=== PATIENT | male | born 1995 | race Caucasian/White ===

== ENCOUNTER 2020-12-08 18:54 | Emergency (ER) | payer SELFPAY ==
[~2020-12-08] VITALS: Ht 183 cm; Wt 64.3 kg
[2020-12-08 19:00] VITALS: BP 134/86
--- NOTE | 2020-12-08 19:15 | ED General ---
General Chief Complaint: Abdominal/GI Problems Stated Complaint: BOWEL CONSTIPATION Source of Information: Patient History of Present Illness Date Seen by Provider: Dec 08, 2020 Time Seen by Provider: 18:56 Initial Comments 25-year-old male presenting with complaints of diffuse abdominal pain and cramping. He has had hard stools small amount of stool in the last 4 days. He did try taking some fiber Gummies which provided minimal improvement. He also was having some intermittent burning with urination. He had no fever, chills, vomiting. He has had some nausea. he states he does not eat regularly and usually only eats about 1 time a day due to travel back and forth from where he works. He has no history of GI issues. He just moved to [place] recently and does not have a primary care provider. Timing/Duration: 4-5 Days Severity: Moderate Modifying Factors: worse with Movement Associated Systoms: No Chest Pain, No Cough, No Diaphoresis, No Fever/Chills, No Headaches, No Loss of Appetite, No Malaise; Nausea/Vomiting (Nausea but no vomiting); No Seizure, No Shortness of Air, No Syncope, No Weakness Allergies and Home Medications Allergies Coded Allergies: Cephalosporins (Verified Allergy, Unknown, 12/08/20) Sulfa (Sulfonamide Antibiotics) (Verified Allergy, Unknown, 12/08/20) Patient Home Medication List Home Medication List Reviewed: Yes Review of Systems Review of Systems Constitutional: No chills, No fever EENTM: no symptoms reported Respiratory: no symptoms reported Cardiovascular: no symptoms reported Gastrointestinal: see HPI Genitourinary: dysuria (Intermittent burning with urination over the last 4 days) Musculoskeletal: no symptoms reported Skin: No rash Psychiatric/Neurological: Denies Headache Past Prmbiox-Iohckh-Cxzami Hx Past Medical History Surgery/Hospitalization HX: Spontaneous Pneumothorax Respiratory: Yes Asthma Cardiac: No Physical Exam Vital Signs Vital Signs - First Documented 12/08/20 19:00 Temp 36.6 Pulse 89 Resp 16 B/P (MAP) 134/86 (102) Pulse Ox 100 O2 Delivery Room Air Capillary Refill : Height, Weight, BMI Height: '" Weight: lbs. oz. kg; BMI Method: General Appearance: No Apparent Distress, Thin HEENT: PERRL/EOMI, Pharynx Normal Neck: Full Range of Motion, Normal Inspection, Non Tender, Supple Respiratory: Chest Non Tender, Lungs Clear, Normal Breath Sounds, No Accessory Muscle Use, No Respiratory Distress Cardiovascular: Regular Rate, Rhythm, Normal Peripheral Pulses Gastrointestinal: Normal Bowel Sounds, No Pulsatile Mass, Non Tender, Soft Rectal: Deferred Extremity: Normal Capillary Refill, Normal Inspection, No Pedal Edema Neurologic/Psychiatric: Alert, Oriented x3 Skin: Normal Color, Warm/Dry Progress/Results/Core Measures Suspected Sepsis SIRS Temperature: Pulse: Respiratory Rate: Blood Pressure / Mean: Results/Orders Lab Results Laboratory Tests Test 12/08/20 19:10 Range/Units Urine Color DARK YELLOW Urine Clarity CLEAR Urine pH 7.0 5-9 Urine Specific [place] 1.020 1.016-1.022 Urine Protein NEGATIVE NEGATIVE Urine Glucose (UA) NEGATIVE NEGATIVE Urine Ketones TRACE H NEGATIVE Urine Nitrite NEGATIVE NEGATIVE Urine Bilirubin NEGATIVE NEGATIVE Urine Urobilinogen 1.0 < = 1.0 MG/DL Urine Leukocyte Esterase NEGATIVE NEGATIVE Urine RBC (Auto) 2+ H NEGATIVE Urine RBC 10-25 H /HPF Urine WBC RARE /HPF Urine Squamous Epithelial Cells NONE /HPF Urine Crystals NONE /LPF Urine Bacteria NEGATIVE /HPF Urine Casts NONE /LPF Urine Mucus LARGE H /LPF Urine Culture Indicated NO My Orders Orders - KINJAL KANG MD Ua Culture If Indicated (12/08/20 19:09) Acute Abd Series (12/08/20 19:09) Vital Signs/I&O 12/08/20 19:00 Temp 36.6 Pulse 89 Resp 16 B/P (MAP) 134/86 (102) Pulse Ox 100 O2 Delivery Room Air Capillary Refill : Progress Note #1: Progress Note check UA and acute abdomen series of abdomen. Plan treatment with Miralax and follow up with [facility] to establish a PCP. Progress Note #2: Progress Note UA with mild elevation of specific gravity so he might be slightly dehydrated. No obstruction or blockage on Acute Abdomen Series. Will have him push fluids, take miralax, try eating a balanced diet. Check back with clinic and establish care. Diagnostic Imaging Diagonstic Imaging: Xray Plain Films/CT/US/NM/MRI: abdomen Comments NAME: MIRANDA DELONG MED REC#: [id number] PT STATUS: REG ER : 1995 PHYSICIAN: KINJAL KANG MD ADMIT DATE: 08/04/21/ER FS Draft Date of Exam:12/08/20 ACUTE ABD SERIES INDICATION: Abdominal pain. EXAMINATION: PA chest, supine and upright abdominal images were obtained. FINDINGS: Lungs are clear. Bowel gas pattern is normal. There is no pathologic mass or calcification. IMPRESSION: No acute abnormality in the abdomen. Dictated on workstation # [id number] Dict: 12/08/201921 Trans: 12/08/201928 [facility] [id number] Interpreted by: JOHNATHAN ARELLANO MD Electronically signed by: Departure Impression Primary Impression: Constipation Qualified Codes: K59.00 - Constipation, unspecified Additional Impression: Dehydration Disposition: HOME, SELF-CARE Condition: Stable Departure-Patient Inst. Decision time for Depature: 19:43 Referrals: NO,LOCAL PHYSICIAN (PCP) [place] Care Phys[place] [facility] [place] Instructions: Constipation, Adult ED, Dehydration, Adult ED Add. Discharge Instructions: Call [facility] at [phone] to get established with a primary care provider. Make sure you are drinking plenty of fluids and take Miralax 17 grams or 1 capful in 8 ounces of water or juice once a day to help loosen and soften your stools. Once you are going regularly you could decrease this to every other day or just 3-4 times a week to help keep your stools soft and regular. Try eating a more balance and healthy diet to keep your stools regular. All discharge instructions reviewed with patient and/or family. Voiced un derstanding. KINJAL KANG MD Dec 08, 2020 19:15
[2020-12-08 19:24] LABS: CLARITY,URINE CLEAR; COLOR,URINE DARK YELLOW
[2020-12-08 19:25] LABS: BACTERIA,URINE NEGATIVE /HPF; BILIRUBIN,URINE NEGATIVE (NEGATIVE); GLUCOSE, URINE (UA) NEGATIVE (NEGATIVE); KETONES,URINE TRACE (NEGATIVE); LEUKOCYTE ESTERASE ,URINE NEGATIVE (NEGATIVE); NITRITE,URINE NEGATIVE (NEGATIVE); PROTEIN,URINE NEGATIVE (NEGATIVE); WBC,URINE RARE /HPF
--- NOTE | 2020-12-08 19:30 | Diagnostic Imaging Report ---
INDICATION: Abdominal pain. EXAMINATION: PA chest, supine and upright abdominal images were obtained. FINDINGS: Lungs are clear. Bowel gas pattern is normal. There is no pathologic mass or calcification. IMPRESSION: No acute abnormality in the abdomen. Dictated by: Dictated on workstation # [id number]
== END 2020-12-08 19:47 | disposition home or self-care (01) ==
LOC: ER FS 18:56
DX: K59.00 Constipation, unspecified (principal); E86.0 Dehydration; J45.909 Unspecified asthma, uncomplicated
CPT/HCPCS: 74022; 81000

== ENCOUNTER 2020-12-14 09:57 | Emergency (ER) | payer SELFPAY ==
[~2020-12-14] VITALS: Ht 182 cm; Wt 65.9 kg
[2020-12-14] MEDS ORDERED: LIDOCAINE UROJET 2% GEL 10 ML PKG ONE (10:09)
[2020-12-14] MEDS ORDERED: LIDOCAINE UROJET 2% GEL 10 ML PKG TOP STA (10:11)
--- NOTE | 2020-12-14 10:19 | ED GU-Male ---
General Chief Complaint: - Urinary Stated Complaint: URINARY RETENTION Source: patient History of Present Illness Date Seen by Provider: Dec 14, 2020 Time Seen by Provider: 10:00 Initial Comments 25-year-old male presenting with complaint of inability to urinate for 24 hours. He reports going to [facility] and being seen in an emergency department ye sterday for continued concerns for constipation. He was seen here on December 08 for same complaint and advised to take Miralax. He reports he was also having a migraine headache and was given Toradol with Benadryl for the headache. He was given several medicines to help with his constipation. He reports that he did finally have a good bowel movement but has not been able to urinate for 24 hours. He was having with pain pressure like he needed to urinate but has not been able to pass any urine. Timing/Duration: getting worse Location: suprapubic Radiation: suprapubic Prior Genitourinary Problems: none Associated Symptoms: No diaphoresis, No dysuria, No fever/chills, No loss of bladder control, No lower back pain, No lumps, No mass, No nausea/vomiting, No nocturia, No polyuria, No swelling, No syncope, No urinary frequency Allergies and Home Medications Allergies Coded Allergies: Cephalosporins (Verified Allergy, Unknown, 12/08/20) Sulfa (Sulfonamide Antibiotics) (Verified Allergy, Unknown, 12/08/20) Patient Home Medication List Home Medication List Reviewed: Yes Review of Systems Review of Systems Constitutional: No chills, No fever EENTM: no symptoms reported Respiratory: no symptoms reported Cardiovascular: no symptoms reported Gastrointestinal: constipation Genitourinary: see HPI Musculoskeletal: no symptoms reported Skin: no symptoms reported Psychiatric/Neurological: Anxiety Past Cghpept-Hmcabk-Qvxmbt Hx Patient Social History Tobacco Use?: Yes Past Medical History Surgery/Hospitalization HX: Spontaneous Pneumothorax Respiratory: Yes Asthma Cardiac: No Physical Exam Vital Signs Vital Signs - First Documented 12/14/20 10:20 Temp 36.5 Pulse 79 Resp 16 B/P (MAP) 123/79 (94) Pulse Ox 100 O2 Delivery Room Air Capillary Refill : Height, Weight, BMI Height: '" Weight: lbs. oz. kg; 19.00 BMI Method: General Appearance: thin, other (anxious) Cardiovascular: normal peripheral pulses, regular rate, rhythm Respiratory: chest non-tender, lungs clear, normal breath sounds Gastrointestinal: normal bowel sounds, soft, no pulsatile mass, tenderness (suprapubic) Rectal: deferred Extremities: normal range of motion, non-tender, normal capillary refill Neurologic/Psychiatric: alert, oriented x 3 Skin: normal color, warm/dry Progress/Results/Core Measures Suspected Sepsis SIRS Temperature: Pulse: Respiratory Rate: Blood Pressure / Mean: Results/Orders Lab Results Laboratory Tests Test 12/14/20 10:10 Range/Units Urine Color YELLOW Urine Clarity CLEAR Urine pH 7.0 5-9 Urine Specific [place] 1.015 L 1.016-1.022 Urine Protein NEGATIVE NEGATIVE Urine Glucose (UA) NEGATIVE NEGATIVE Urine Ketones TRACE H NEGATIVE Urine Nitrite NEGATIVE NEGATIVE Urine Bilirubin NEGATIVE NEGATIVE Urine Urobilinogen 0.2 < = 1.0 MG/DL Urine Leukocyte Esterase NEGATIVE NEGATIVE Urine RBC (Auto) TRACE NEGATIVE Urine RBC 10-25 H /HPF Urine WBC RARE /HPF Urine Squamous Epithelial Cells NONE /HPF Urine Crystals PRESENT H /LPF Urine Amorphous Sediment FEW PRANAY URATES H /LPF Urine Bacteria NEGATIVE /HPF Urine Casts NONE /LPF Urine Mucus MODERATE H /LPF Urine Culture Indicated NO My Orders Orders - KINJAL KANG MD Bladder Scan (12/14/20 10:03) Lidocaine 2% (Urojet) (Xylocaine Urojet) (12/14/20 10:11) Lidocaine 2% (Urojet) (Xylocaine Urojet) (12/14/20 10:09) Martínez Cath (12/14/20 10:11) Ua Culture If Indicated (12/14/20 10:11) Vital Signs/I&O 12/14/20 10:20 Temp 36.5 Pulse 79 Resp 16 B/P (MAP) 123/79 (94) Pulse Ox 100 O2 Delivery Room Air Capillary Refill : Progress Note #1: Progress Note Bladder scan showed over 1000 mL of urine. Advised patient that he would need a Martínez catheter to stay on for several days to allow the bladder to recover from the shock of being overstretched. Hopefully the catheter can be removed either Sunday or next Sunday or Sunday. Will also check a UA to ensure that he does not need antibiotics. Will give number and information for Dr. Reece for Urology follow up as well. Progress Note #2: Progress Note UA does not show infection so will defer antibiotic. Encourage hydration and given information about care of catheter and follow up with clinic and urology for catheter. Departure Impression Primary Impression: Acute urinary retention Disposition: 01 HOME, SELF-CARE Condition: Stable Departure-Patient Inst. Decision time for Depature: 10:57 Referrals: NO,LOCAL PHYSICIAN (PCP) Primary Care Physician SAURABH REECE [place] [facility] [place] Instructions: Urinary Retention (DC), How to Care for Your Martínez Catheter, Male Add. Discharge Instructions: Stay well hydrated Follow up with clinic to see if the catheter can be removed at end of this week or if will have to stay in until beginning of next week. If [facility] clinic can not have you see a provider this week about the catheter you may also call Dr. Reece from [place]. He is a Urologist and specializes in the bladder and urinary system. All discharge instructions reviewed with patient and/or family. Voiced understanding. KINJAL KANG MD Dec 14, 2020 10:18
[2020-12-14 10:20] VITALS: BP 123/79
[2020-12-14 10:50] LABS: COLOR,URINE YELLOW
[2020-12-14 10:51] LABS: BACTERIA,URINE NEGATIVE /HPF; BILIRUBIN,URINE NEGATIVE (NEGATIVE); CLARITY,URINE CLEAR; GLUCOSE, URINE (UA) NEGATIVE (NEGATIVE); KETONES,URINE TRACE (NEGATIVE); LEUKOCYTE ESTERASE ,URINE NEGATIVE (NEGATIVE); NITRITE,URINE NEGATIVE (NEGATIVE); PROTEIN,URINE NEGATIVE (NEGATIVE); WBC,URINE RARE /HPF
[2020-12-14 10:52] LABS: AMORPHOUS SEDIMENT,UR FEW AMOR URATES /LPF
== END 2020-12-14 11:05 | disposition home or self-care (01) ==
LOC: EDUNIT# 09:57 → ER FS 09:59
DX: R33.9 Retention of urine, unspecified (principal); J45.909 Unspecified asthma, uncomplicated
CPT/HCPCS: 51702; 81000

== ENCOUNTER 2021-01-10 10:46 | Emergency (ER) | payer SELFPAY ==
[~2021-01-10] VITALS: Ht 182.9 cm; Wt 61.2 kg
[2021-01-10 10:50] VITALS: BP 113/68
--- NOTE | 2021-01-10 11:36 | ED GU-Male ---
General Chief Complaint: - Reproductive Stated Complaint: URINARY PAIN Source: patient Exam Limitations: no limitations (CHRIS GODFREY STUDENT) History of Present Illness Date Seen by Provider: Jan 10, 2021 Time Seen by Provider: 11:30 Initial Comments Fredy is a 25 yo M who is presenting for urinary pain and burning. Pt has Martínez catheter that was placed 12/14/20. Pt stated he had mild burning on 01/08, burning increased in intensity yesterday morning. Pt was at [facility] last night and was told he has a uti, his antibiotic was switched to ciprofloxacin from macrobid. Pain and burning localized to the penis, no scrotal or suprapubic pain. Denies any pus, blood, or change in urine color. Timing/Duration: yesterday, getting worse Severity/Quality: moderate, burning, stabbing Location: urethral Radiation: none Activities at Onset: other (standing up ) Sexual [place] History: less than 2 months ago, single partner Modifying Factors: Improves With Analgesics, Improves With Defecating; Worsens With Movement, Worsens With Urinating Associated Symptoms: No abdominal pain, No diaphoresis, No fever/chills, No lower back pain, No nausea/vomiting, No swelling (CHRIS GODFREY STUDENT) Allergies and Home Medications Allergies Coded Allergies: Cephalosporins (Verified Allergy, Unknown, 12/08/20) Penicillins (Verified Allergy, Unknown, 01/10/21) per patient Sulfa (Sulfonamide Antibiotics) (Verified Allergy, Unknown, 12/08/20) Patient Home Medication List Home Medication List Reviewed: Yes (VICKIE CASTRO MD) Phenazopyridine HCl (Pyridium) 200 Mg Tablet, 1 TAB PO TID PRN for PAIN-MODERATE (5-7) Prescribed by: VICKIE MOREIRA on 01/10/21 1142 Review of Systems Review of Systems Constitutional: No chills, No diaphoresis, No dizziness, No fever Respiratory: No cough, No short of breath Cardiovascular: No chest pain, No edema, No palpitations Gastrointestinal: No abdominal pain, No constipation, No diarrhea, No nausea, No vomiting Genitourinary: burning; denies hematuria; pain Musculoskeletal: No back pain (CHRIS GODFREY STUDENT) Past Sszrcte-Izdmdh-Gtewkl Hx Patient Social History Tobacco Use?: No Smoking Status: Never a Smoker Substance use?: No (CHRIS GODFREY) Past Medical History Surgery/Hospitalization HX: Spontaneous Pneumothorax, carpal tunnel Surgeries: Yes Respiratory: Yes Asthma Cardiac: No Neurological: Yes Headaches /Migraines Sexually Transmitted Disease: No Genitourinary: Yes Bladder Infection Gastrointestinal: Yes Chronic Constipation Psychosocial: No (CHRIS GODFREY) Family Medical History No Pertinent Family Hx (CHRIS GODFREY) Physical Exam Vital Signs Vital Signs - First Documented 01/10/21 10:50 Temp 36.6 Pulse 111 Resp 16 B/P (MAP) 113/68 (83) Pulse Ox 100 O2 Delivery Room Air (VICKIE CASTRO MD) Vital Signs Capillary Refill : (CHRIS GODFREY) Height, Weight, BMI Height: '" Weight: lbs. oz. kg; 19.00 BMI Method: General Appearance: mild distress, thin Neurologic/Psychiatric: normal mood/affect, oriented x 3 (CHRIS GODFREY) Progress/Results/Core Measures Suspected Sepsis SIRS Temperature: Pulse: Respiratory Rate: Blood Pressure / Mean: (CHRIS GODFREY) Results/Orders My Orders (VICKIE CASTRO MD) Vital Signs/I&O 01/10/21 10:50 Temp 36.6 Pulse 111 Resp 16 B/P (MAP) 113/68 (83) Pulse Ox 100 O2 Delivery Room Air (VICKIE CASTRO MD) Vital Signs/I&O Capillary Refill : (CHRIS GODFREY) Progress Note : Progress Note Urinalysis and urine cultures were not collected due to both being done at [facility] the previous night. Still waiting for urine culture results. Pt was offered gonorrhea and chlamydia testing today, this testing was declined by pt. Discussed keeping the catheter in and using pyridium to help with the urethral pain. Also talked about taking the catheter out and the potential benefits. Pt is uncomfortable with doing intermittent straight catheterizations by himself. Talked about pt returning for catheter placement if obstruction reoccu rs. Pt is following up with his urologist, located in [place], [place], this upcoming Sunday. (CHRIS GODFREY) Progress Note : Progress Note After reviewing options patient decided he wanted the catheter removed. He is aware that this may result in a repeat obstruction requiring return to the ER for replacement. He is to start the Cipro as prescribed in [place] last night as well as Pyridium prescribed from the ER [facility]. Patient had some concern after the catheter was removed as he had passed some urine followed by sediment and about a teaspoon of bright red blood. I encouraged him to drink a couple glasses of water prior to leaving the ER to start urine production. Patient declined to drink stating he did not want to leak or have to urinate on the way home. See discharge instructions. (VICKIE CASTRO MD) Departure Impression Primary Impression: Penile pain Additional Impressions: Urinary tract infection Qualified Codes: N39.0 - Urinary tract infection, site not specified Urinary obstruction Disposition: 01 HOME, SELF-CARE Condition: Improved Departure-Patient Inst. Decision time for Depature: 11:38 (VICKIE CASTRO MD) Referrals: FABIAN SPRINGER MD (PCP/Family) Primary Care Physician Patient Instructions: Urinary Obstruction, Urinary Tract Infection, Adult (DC) Add. Discharge Instructions: Drink plenty of clear liquids and urinate often to help flush out your bladder. If you have residual pain, you may use Pyridium as prescribed. Please be aware this medication may turn your urine orange or reddish color. If you develop urinary obstruction again, please return to the ER to have your catheter replaced. Follow-up with your urologist as planned. Please follow-up on your urine culture results to help determine if the antibiotic you are taking is appropriate for the urinary tract infection you have. Use the Cipro as prescribed. Call with questions or concerns. Return to the ER if you have any other worsening symptoms or concerns that require immediate attention. All discharge instructions reviewed with patient and/or family. Voiced understanding. Scripts Phenazopyridine HCl (Pyridium) 200 Mg Tablet 1 TAB PO TID PRN for PAIN-MODERATE (5-7), #10 TAB Prov: VICKIE CASTRO MD 01/10/21 Medical Student Attestation and Attending Note: I have personally interviewed and examined this patient along with Chris Godfrey, MS 4. I have reviewed student documentation including history, physical, and assessments. I agree with the documentation except where otherwise noted. Exam: General: Alert, oriented, no acute distress, well developed HEENT: Normocephalic and atraumatic Abdomen: Soft, nontender, nondistended, normal bowel sounds Genital: Normal-appearing penis with tenderness to palpation along the shaft. No erythema. No drainage from the meatus. Scrotum and testicles normal in appearance and nontender. Catheter appears normal. Neuropsych: Alert, oriented, no focal deficits Skin: Warm and dry without rashes (VICKIE CASTRO MD) Copy Copies To 1: FABIAN SPRINGER MD, KATHRYN MED STUDENT Jan 10, 2021 11:36 VICKIE CASTRO MD Jan 10, 2021 11:42
[2021-01-10] MEDS ORDERED: PHEN-640 PO (11:42)
== END 2021-01-10 11:46 | disposition home or self-care (01) ==
LOC: EDUNIT# 10:46 → ER FS 10:48
DX: N48.89 Other specified disorders of penis (principal); N39.0 Urinary tract infection, site not specified; N13.9 Obstructive and reflux uropathy, unspecified; J45.909 Unspecified asthma, uncomplicated
CPT/HCPCS: 99282

== ENCOUNTER 2021-05-10 07:40 | Observation (INO) | payer SELFPAY ==
[~2021-05-10] VITALS: Ht 182.9 cm; Wt 66.1 kg
[~2021-05-10 07:40] MED LIST: PHEN-640 PO
--- NOTE | 2021-05-10 08:03 | ED Chest Pain ---
General Chief Complaint: Chest Pain Stated Complaint: CHEST PAIN Source: patient Exam Limitations: no limitations History of Present Illness Date Seen by Provider: May 10, 2021 Time Seen by Provider: 07:48 Initial Comments 25-year-old male with past medical history of spontaneous pneumothorax coming in due to chest pain. Is been ongoing for 3 weeks and has been on the right side of his chest, and sharp. He presented to [facility] in [place] not l fred ago and they diagnosed him with pleurisy and prescribed him with naproxen. He last took this 8 hours ago. He says this does help some with the pain. He says the pain now is on the left side of his chest for the past 24 hours, and is constant and unrelenting. It is worse when he lays back and little bit better when he sits up. He is otherwise denying any other acute complaints including fever, shortness of breath, abdominal pain, nausea, vomiting, diarrhea, weakness, numbness, cough, rash, or any other concerns. Allergies and Home Medications Allergies Coded Allergies: Cephalosporins (Verified Allergy, Unknown, 12/08/20) Penicillins (Verified Allergy, Unknown, 01/10/21) per patient Sulfa (Sulfonamide Antibiotics) (Verified Allergy, Unknown, 12/08/20) Patient Home Medication List Home Medication List Reviewed: Yes Phenazopyridine HCl (Pyridium) 200 Mg Tablet, 1 TAB PO TID PRN for PAIN-MODERATE (5-7) Prescribed by: VICKIE MOREIRA on 01/10/21 1142 Review of Systems Review of Systems Constitutional: No chills, No fever EENTM: No Blurred Vision Respiratory: Denies Cough, Denies Shortness of Air Cardiovascular: Chest Pain Gastrointestinal: Denies Abdominal Pain, Denies Diarrhea, Denies Nausea, Denies Vomiting Genitourinary: No Symptoms Reported Musculoskeletal: No joint pain Skin: No rash Psychiatric/Neurological: No Symptoms Reported Endocrine: No Symptoms Reported Hematologic/Lymphatic: No Symptoms Reported All Other Systems Reviewed Negative Unless Noted: Yes Past Zbjsfql-[id number]-Fxhijj Hx Patient Social History Tobacco Use?: Yes Tobacco type used: Cigarettes Use of E-Cig and/or Vaping dev: No Substance use?: Yes Substance type: Marijuana Substance frequency: Once in a while Alcohol Use?: Yes Alcohol Frequency: Once in a while Pt feels they are or have been: No Immunizations Up To Date Influenza Vaccine Up-to-Date: No; Not Current First/Initial COVID19 Vaccinat: Not currently vaccinated Past Medical History Surgery/Hospitalization HX: Spontaneous Pneumothorax, carpal tunnel; urinary retention Surgeries: Yes Respiratory: Yes Asthma Cardiac: No Neurological: Yes Headaches /Migraines Sexually Transmitted Disease: No Genitourinary: Yes Bladder Infection Gastrointestinal: Yes Chronic Constipation Psychosocial: No Family Medical History No Pertinent Family Hx Physical Exam Vital Signs Vital Signs - First Documented 05/10/21 05/10/21 07:42 08:35 Temp 37.0 Pulse 97 Resp 20 B/P (MAP) 139/84 (102) Pulse Ox 94 O2 Delivery Room Air O2 Flow Rate 2.00 Capillary Refill : Height, Weight, BMI Height: '" Weight: lbs. oz. kg; 18.00 BMI Method: General Appearance: No Apparent Distress, WD/WN HEENT: PERRL/EOMI, Normal ENT Inspection, Pharynx Normal Neck: Full Range of Motion, Normal Inspection, Non Tender, Supple Respiratory: Chest Non Tender, No Accessory Muscle Use, No Respiratory Distress, Other (decreased breath sounds on the left) Cardiovascular: Regular Rate, Rhythm, No Edema, Normal Peripheral Pulses; No Friction Rub Gastrointestinal: Normal Bowel Sounds, Non Tender, Soft; No Distended, No Guarding Extremity: Normal Capillary Refill, Normal Inspection, Normal Range of Motion, Non Tender, No Calf Tenderness Neurologic/Psychiatric: Alert, No Motor/Sensory Deficits, Normal Mood/Affect Skin: Normal Color, Warm/Dry Lymphatic: No Adenopathy Procedures/Interventions Chest Tube : Chest Tube Position: Left Chest Tube Location: Anterior Chest Size of Slovak Tube (cm): 13 Chest Tube Procedure: betadine prep Anesthesia: 1% Lidocaine w/ Epi Volume Anesthetic (ccs): 7 Szymanski of Air Crisp: Yes Number of Attempts: 1 Post Procedure CXR?: Yes Progress Thoravent used without difficulty, placed to suction until constant air leak stopped, confirmed placement with CXR and then CT chest Patient Education: Explained Benefits, Explained Risks, Pt. Ack. Understanding Agreement on procedure with pt: Yes Breath Sounds per Auscultation: Clear (decreased on left due to pneumothorax) Heart Sounds per Auscultation: Regular Airway Exam: Mouth opens >2 fingers, Neck Full Range of Motion, Visulation of Uvula Sedation Adminstration Time: 08:40 Total Time spent in CS 10 minutes Patient tolerated the procedural sedation without difficulty or side effects Re-examination Time: 08:51 Re-examination 0855 Care turned over to: Nurse Progress/Results/Core Measures Results/Orders Lab Results Laboratory Tests Test 05/10/21 08:10 Range/Units White Blood Count 11.5 H 4.3-11.0 10^3/uL Red Blood Count 5.41 4.30-5.52 10^6/uL Hemoglobin 17.3 13.3-17.7 g/dL Hematocrit 49 40-54 % Mean Corpuscular Volume 91 80-99 fL Mean Corpuscular Hemoglobin 32 25-34 pg Mean Corpuscular Hemoglobin Concent 35 32-36 g/dL Red Cell Distribution Width 12.9 10.0-14.5 % Platelet Count 275 130-400 10^3/uL Mean Platelet Volume 8.9 L 9.0-12.2 fL Immature Granulocyte % (Auto) 0 % Neutrophils (%) (Auto) 56 42-75 % Lymphocytes (%) (Auto) 33 12-44 % Monocytes (%) (Auto) 7 0-12 % Eosinophils (%) (Auto) 3 0-10 % Basophils (%) (Auto) 0 0-10 % Neutrophils # (Auto) 6.5 1.8-7.8 X 10^3 Lymphocytes # (Auto) 3.7 1.0-4.0 X 10^3 Monocytes # (Auto) 0.8 0.0-1.0 X 10^3 Eosinophils # (Auto) 0.3 0.0-0.3 10^3/uL Basophils # (Auto) 0.0 0.0-0.1 10^3/uL Immature Granulocyte # (Auto) 0.0 0.0-0.1 10^3/uL Sodium Level 139 135-145 MMOL/L Potassium Level 4.0 3.6-5.0 MMOL/L Chloride Level 105 98-107 MMOL/L Carbon Dioxide Level 23 21-32 MMOL/L Anion Gap 11 5-14 MMOL/L Blood Urea Nitrogen 14 7-18 MG/DL Creatinine 0.84 0.60-1.30 MG/DL Estimat Glomerular Filtration Rate 111 BUN/Creatinine Ratio 17 Glucose Level 139 H 70-105 MG/DL Calcium Level 9.4 8.5-10.1 MG/DL My Orders Orders - KRUMSICK,SHAWNA K MD Chest Pa/Lat (2 View) (05/10/21 07:49) Ekg Tracing (05/10/21 07:49) Basic Metabolic Panel (05/10/21 08:07) Cbc With Automated Diff (05/10/21 08:07) Lidocaine/Epi 2% 1:100,000 (Xylocaine/Ep (05/10/21 08:15) Ed Iv/Invasive Line Start (05/10/21 08:21) Lactated Ringers (Lr 1000 Ml Iv Solution (05/10/21 08:30) Ketamine Injection (Ketalar Injection) (05/10/21 08:30) Chest 1 View Ap/Pa Only (05/10/21 ) Ct Chest Wo (05/10/21 09:10) Fentanyl Inj (Sublimaze Injection) (05/10/21 09:15) Fentanyl Inj (Sublimaze Injection) (05/10/21 09:16) Ketorolac Injection (Toradol Injection) (05/10/21 09:45) Medications Given in ED Current Medications Medications Dose Ordered Sig/Asif Route Start Time Stop Time Status Last Admin Dose Admin Fentanyl Citrate 50 mcg ONCE ONCE IVP 05/10/21 09:15 05/10/21 09:16 DC 05/10/21 09:17 50 MCG Ketamine HCl 25 mg ONCE ONCE IV 05/10/21 08:30 05/10/21 08:31 DC 05/10/21 08:29 25 MG Lactated Ringer's 1,000 ml @ 0 mls/hr Q0M ONCE IV 05/10/21 08:30 05/10/21 08:31 DC 05/10/21 08:32 0 MLS/HR Lidocaine/ Epinephrine 20 ml ONCE ONCE INJ 05/10/21 08:15 05/10/21 08:16 DC 05/10/21 08:20 20 ML Vital Signs/I&O 05/10/21 05/10/21 05/10/21 05/10/21 07:42 08:35 08:39 08:40 Temp 37.0 37.0 37.0 Pulse 97 99 94 Resp 20 20 16 B/P (MAP) 139/84 (102) 133/90 140/75 Pulse Ox 94 95 99 O2 Delivery Room Air Nasal Cannula Nasal Cannula Nasal Cannula O2 Flow Rate 2.00 2.00 2.00 2.00 05/10/21 05/10/21 05/10/21 05/10/21 08:45 08:50 08:55 09:00 Temp 37.0 37.0 36.7 36.7 Pulse 118 104 106 98 Resp 17 B/P (MAP) 173/96 146/80 138/69 138/76 Pulse Ox 97 98 99 99 O2 Delivery Nasal Cannula Nasal Cannula Nasal Cannula Nasal Cannula O2 Flow Rate 2.00 2.00 2.00 2.00 Progress Progress Note : Progress Note 25-year-old male with above history coming in due to chest pain. ABCs were intact and vitals were stable on presentation. Physical exam with decreased breath sounds on the left. Chest x-ray with complete collapse of the left lung with pneumothorax. I personally discussed the case with the radiologist on-call confirming this, and he is concerned for some early signs of tension pneumothorax. Because of this, I placed a Thora vent tube with good air return. Placed him on suction until the constant air leak went away. Contacted Dr. Thompson in [place] discussed the patient's case who recommended a CT of his chest to evaluate for any blebs or other pathology that would cause his second pneumothorax. Given that the lung was completely down, I would like him to be observed at least overnight to be sure he does not develop any type of pneumonitis from the reexpansion. The patient will be transferred to [place] for further evaluation and william gement. Initial ECG Impression Date: May 10, 2021 Initial ECG Impression Time: 07:43 Initial ECG Rate: 98 Initial ECG Rhythm: Normal Sinus Comment Narrow QRS, normal axis, no significant ST changes Diagnostic Imaging Diagonstic Imaging: CT (chest) Comments [facility], [place] NAME: MIRANDA DELONG [facility] REC#: [id number] PT STATUS: REG ER : 1995 PHYSICIAN: SHAWNA TORRES MD ADMIT DATE: 05/10/21/ER FS Draft Date of Exam:05/10/21 CT CHEST WO PROCEDURE: CT chest without contrast. TECHNIQUE: Multiple contiguous axial images were obtained through the chest without the use of intravenous contrast. Auto Exposure Controls were utilized during the CT exam to meet ALARA standards for radiation dose reduction. INDICATION: Pneumothorax chest tube There are no prior CT chest examinations available comparison. The plain film examination of the chest performed prior study did note a 70-80% pneumothorax on the left. In the interval since the prior study, a small caliber chest tube has been inserted on the left. The tip of the tube is directed cephalad and overlies the left upper lung. The pneumothorax seen previously has diminished considerably. There is still a small amount of free air along the anterior aspect of the right lung base. Furthermore in the interval since the prior study, bibasilar atelectasis/infiltrate has developed. There could be an element of pneumonia present. The right lung is clear. The heart size is within normal limits. There are no coronary artery calcifications noted. The aorta is not abnormally dilated. There is no obvious mediastinal or hilar adenopathy. The thyroid gland was not well visualized. The sections through the upper abdomen failed to show any sign of an acute abnormality. The bone windows are unremarkable for fracture or for destructive lesion. IMPRESSION: 1. The appearance of the chest has improved since the prior exam following insertion of a left-sided chest tube. The large pneumothorax on the left seen previously has nearly completely resolved. Only a small amount of free air still present in the left lung base. 2. However, left lower lobe atelectasis/infiltrate has developed. Clinical follow-up is recommended. 3. There is no acute abnormality identified otherwise. Dictated on workstation # [id number] Dict: 05/10/21 0939 Trans: 05/10/21 0947 [id number] Interpreted by: TIGIST MELTON MD Electronically signed by: Departure Impression Primary Impression: Spontaneous pneumothorax Disposition: 30 STILL A PATIENT Condition: Stable Admissions Decision to Admit Reason: Admit from ER (General) Decision to Admit/Date: May 10, 2021 Time/Decision to Admit Time: 09:15 Transfer Method of Transfer: EMS Departure-Patient Inst. Referrals: FABIAN SPRINGER MD (PCP/Family) Primary Care Physician SHAWNA TORRES MD May 10, 2021 08:03
[2021-05-10] MEDS ORDERED: LIDOCAINE/EPI 2% 1:100,00 (XYLOCAINE) 20 ML VIAL INJ ONE (08:15)
--- NOTE | 2021-05-10 08:16 | Diagnostic Imaging Report ---
PA and lateral chest at 803h. INDICATION: Chest pain There are no prior studies available for comparison. There is a 70-80% pneumothorax on the left. Most of the left lung is collapsed about the left hilum. There is also slight shift of midline to the right and there may be an element of tension present as well. The right lung is clear. The heart size is within normal limits. The mediastinum is not widened. The osseous structures are intact. IMPRESSION: 1. There is a 70-80% pneumothorax on the left. There may be an element of tension developing as well. 2. These results were discussed with Dr. Brendan Funez at the time of this dictation. CRITICAL FINDING: Dictated by: Dictated on workstation # [id number]
[2021-05-10 08:25] LABS: HEMATOCRIT 49 % (40-54); HEMOGLOBIN 17.3 g/dL (13.3-17.7); LYMPHOCYTES % (AUTO) 33 % (12-44); MEAN CORPUSCULAR HEMOGLOBIN 32 pg (25-34); MEAN CORPUSCULAR HGB CONC 35 g/dL (32-36); MEAN CORPUSCULAR VOLUME 91 fL (80-99); MEAN PLATELET VOLUME 8.9 fL (9.0-12.2); MONOCYTES % (AUTO) 7 % (0-12); NEUTROPHILS % (AUTO) 56 % (42-75); PLATELET COUNT 275 10^3/uL (130-400); WHITE BLOOD COUNT 11.5 10^3/uL (4.3-11.0)
[2021-05-10 08:26] LABS: BASOPHILS % (AUTO) 0 % (0-10); EOSINOPHILS # (AUTO) 0.3 10^3/uL (0.0-0.3); EOSINOPHILS % (AUTO) 3 % (0-10); LYMPHOCYTES # (AUTO) 3.7 X 10^3 (1.0-4.0); MONOCYTES # (AUTO) 0.8 X 10^3 (0.0-1.0); NEUTROPHILS # (AUTO) 6.5 X 10^3 (1.8-7.8)
[2021-05-10] MEDS ORDERED: LACTATED RINGERS 1,000 ML IV ONE (08:30)
[2021-05-10] MEDS ORDERED: KETAMINE HCL 100 MG/ML 5 ML VIAL IV ONE (08:30)
[2021-05-10 08:52] LABS: CALCIUM 9.4 MG/DL (8.5-10.1); CREATININE SERUM 0.84 MG/DL (0.60-1.30)
[2021-05-10] MEDS ORDERED: fentaNYL INJ 100 MCG/2 ML AMP IVP ONE (09:15)
[2021-05-10] MEDS ORDERED: fentaNYL INJ 100 MCG/2 ML AMP ONE (09:16)
--- NOTE | 2021-05-10 09:19 | Diagnostic Imaging Report ---
INDICATION: Pneumothorax. TECHNIQUE/COMPARISON: A frontal chest was obtained at 8:58 AM and compared with 8:03 AM the same day. FINDINGS: There is a new small caliber chest tube on the left side overlying the apical region. The large left pneumothorax appears identical to the prior study. There is no significant pleural fluid. The right lung is clear. IMPRESSION: A large left pneumothorax is present despite the addition of a new small caliber left-sided chest tube. Followup is recommended. Dictated by: Dictated on workstation # [id number]
[2021-05-10] MEDS ORDERED: KETOROLAC 30 MG/ML VIAL IVP ONE (09:45)
--- NOTE | 2021-05-10 09:49 | Diagnostic Imaging Report ---
PROCEDURE: CT chest without contrast. TECHNIQUE: Multiple contiguous axial images were obtained through the chest without the use of intravenous contrast. Auto Exposure Controls were utilized during the CT exam to meet ALARA standards for radiation dose reduction. INDICATION: Pneumothorax chest tube There are no prior CT chest examinations available comparison. The plain film examination of the chest performed prior study did note a 70-80% pneumothorax on the left. In the interval since the prior study, a small caliber chest tube has been inserted on the left. The tip of the tube is directed cephalad and overlies the left upper lung. The pneumothorax seen previously has diminished considerably. There is still a small amount of free air along the anterior aspect of the right lung base. Furthermore in the interval since the prior study, bibasilar atelectasis/infiltrate has developed. There could be an element of pneumonia present. The right lung is clear. The heart size is within normal limits. There are no coronary artery calcifications noted. The aorta is not abnormally dilated. There is no obvious mediastinal or hilar adenopathy. The thyroid gland was not well visualized. The sections through the upper abdomen failed to show any sign of an acute abnormality. The bone windows are unremarkable for fracture or for destructive lesion. IMPRESSION: 1. The appearance of the chest has improved since the prior exam following insertion of a left-sided chest tube. The large pneumothorax on the left seen previously has nearly completely resolved. Only a small amount of free air still present in the left lung base. 2. However, left lower lobe atelectasis/infiltrate has developed. Clinical follow-up is recommended. 3. There is no acute abnormality identified otherwise. Dictated by: Dictated on workstation # [id number]
[2021-05-10 12:08] VITALS: BP 129/83
--- NOTE | 2021-05-10 13:13 | History & Physical-Surgical ---
BJORNDONATO 05/10/21 1313: History of Present Illness History of Present Illness Reason for visit/HPI Fredy Delong is a 25 yo male with a PMH of R-sided spontaneous pneumothorax who presents for evaluation and management of chest pain that has persisted for 3 weeks. Patient states that over the past 3 weeks, he was diagnosed with pleurisy at [facility], however, the Naproxen he was prescribed has minimally helped with pain. In the past 24 hours, the chest pain migrated to the L side, and radiates up to his left lateral neck, which he described as sharp in character. Upon arrival to [place] ED, it was determined he had a left large pneumothorax, for which a chest tube was placed with minimal improvement. A thoravent was ultimately put in place, which largely resolved the pneumothorax, however there is still some free air present in the lower lobe of L lung. Upon my visit, Fredy was sitting up in bed, with thoravent in place on left chest; he appears frustrated due to the fact that he is unsure of how long he will be here and that he is NPO. Chest CT indicates that there is L basilar atelectasis/infiltrate present, which may be suggestive of a developing penumonia. CXR indicated an element of tension PNX. EKG demonstrated biatrial enlargement and mild T wave abnormalities. Fredy states that the chest pain is always worse in the morning or after he lays down for an extended period of time, and is relieved by sitting or standing. He reports that movement of his neck and deep breathing worsens the pain to an 8/10, so he is presently taking shallow breaths, and trying not to move his neck. Date of Admission May 10, 2021 at 12:03 Date Seen by a Provider: May 10, 2021 Time Seen by a Provider: 13:13 I consulted on this patient on 05/10/21 12:58 Attending Physician Hanh Clay DO Admitting Physician Hayden Willis MD Consult Allergies and Home Medications Allergies Coded Allergies: Cephalosporins (Verified Allergy, Unknown, 12/08/20) Penicillins (Verified Allergy, Unknown, 01/10/21) per patient Sulfa (Sulfonamide Antibiotics) (Verified Allergy, Unknown, 12/08/20) Patient Home Medication List Phenazopyridine HCl (Pyridium) 200 Mg Tablet, 1 TAB PO TID PRN for PAIN-MODERATE (5-7) Prescribed by: VICKIE MOREIRA on 01/10/21 1142 Past Xkxbchm-Fwryko-Zvrutc Hx Patient Social History Marrital Status: cohabiting Employed/Student: employed Tobacco Use?: Yes Tobacco type used: Cigarettes Smoking Status: Current Everyday Smoker Smokeless Tobacco Frequency: Never a User Use of E-Cig and/or Vaping dev: No Substance use?: No Substance type: Marijuana Substance frequency: Once in a while Alcohol Use?: No Alcohol Frequency: Once in a while Pt feels they are or have been: No Immunizations Up To Date First/Initial COVID19 Vaccinat: Not currently vaccinated Second COVID19 Vaccination Ruben: Not currently vaccinated Tetanus Booster (TDap): Unknown Hepatitis A: Yes Hepatitis B: Yes Current Status Advance Directives: No Communicates: Verbally Primary Language: Somali Preferred Spoken Language: Somali Is interpretation needed?: No Implanted or Applied Medical D: None Past Medical History Asthma Headaches /Migraines Sexually Transmitted Disease: No Bladder Infection Chronic Constipation Family Medical History No Pertinent Family Hx Review of Systems Constitutional: No chills, No fever; malaise EENTM: No blurred vision, No double vision Respiratory: short of breath Cardiovascular: chest pain Gastrointestinal: No abdominal pain, No nausea, No vomiting Musculoskeletal: No back pain, No joint pain Skin: No change in color, No change in hair/nails Psychiatric/Neurological: Denies Anxiety, Denies Depressed Physical Exam Vital Signs Vital Signs - First Documented 05/10/21 05/10/21 07:42 08:35 Temp 37.0 Pulse 97 Resp 20 B/P (MAP) 139/84 (102) Pulse Ox 94 O2 Delivery Room Air O2 Flow Rate 2.00 Capillary Refill : Less Than 3 Seconds Height, Weight, BMI Height: '" Weight: lbs. oz. 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 Norm as Tested Skin: Normal Color, Warm/Dry Lymphatic: No Adenopathy Data Review Labs Laboratory Tests 05/10/21 08:10: White Blood Count 11.5H, Red Blood Count 5.41, Hemoglobin 17.3, Hematocrit 49, Mean Corpuscular Volume 91, Mean Corpuscular Hemoglobin 32, Mean Corpuscular Hemoglobin Concent 35, Red Cell Distribution Width 12.9, Platelet Count 275, Mean Platelet Volume 8.9L, Immature Granulocyte % (Auto) 0, Neutrophils (%) (Auto) 56, Lymphocytes (%) (Auto) 33, Monocytes (%) (Auto) 7, Eosinophils (%) (Auto) 3, Basophils (%) (Auto) 0, Neutrophils # (Auto) 6.5, Lymphocytes # (Auto) 3.7, Monocytes # (Auto) 0.8, Eosinophils # (Auto) 0.3, Basophils # (Auto) 0.0, Immature Granulocyte # (Auto) 0.0, Sodium Level 139, Potassium Level 4.0, Chloride Level 105, Carbon Dioxide Level 23, Anion Gap 11, Blood Urea Nitrogen 14, Creatinine 0.84, Estimat Glomerular Filtration Rate 111, BUN/Creatinine Ratio 17, Glucose Level 139H, Calcium Level 9.4 Radiology Date of Exam:05/10/21 CHEST 1 VIEW AP/PA ONLY INDICATION: Pneumothorax. TECHNIQUE/COMPARISON: A frontal chest was obtained at 8:58 AM and compared with 8:03 AM the same day. FINDINGS: There is a new small caliber chest tube on the left side overlying the apical region. The large left pneumothorax appears identical to the prior study. There is no significant pleural fluid. The right lung is clear. IMPRESSION: A large left pneumothorax is present despite the addition of a new small caliber left-sided chest tube. Followup is recommended. Dictated on workstation # [id number] Dict: 05/10/21915 Trans: 05/10/21918 [id number] Interpreted by: GET PEDERSON MD Electronically signed by: NAME: FREDY DELONG CHANI REC#: [id number] PT STATUS: REG ER : 1995 PHYSICIAN: SHAWNA TORRES MD ADMIT DATE: 05/10/21/ER FS Draft Date of Exam:05/10/21 CHEST PA/LAT (2 VIEW) PA and lateral chest at 803h. INDICATION: Chest pain There are no prior studies available for comparison. There is a 70-80% pneumothorax on the left. Most of the left lung is collapsed about the left hilum. There is also slight shift of midline to the right and there may be an element of tension present as well. The right lung is clear. The heart size is within normal limits. The mediastinum is not widened. The osseous structures are intact. IMPRESSION: 1. There is a 70-80% pneumothorax on the left. There may be an element of tension developing as well. 2. These results were discussed with Dr. Brendan Torres at the time of this dictation. CRITICAL FINDING: Dictated on workstation # [id number] Dict: 05/10/21 0808 Trans: 05/10/21 0816 [facility] [id number] Interpreted by: TIGIST MELTON MD NAME: FREDY DELONG [facility] REC#: [id number] PT STATUS: REG ER : 1995 PHYSICIAN: SHAWNA TORRES MD ADMIT DATE: 05/10/21/ER FS Draft Date of Exam:05/10/21 CT CHEST WO PROCEDURE: CT chest without contrast. TECHNIQUE: Multiple contiguous axial images were obtained through the chest without the use of intravenous contrast. Auto Exposure Controls were utilized during the CT exam to meet ALARA standards for radiation dose reduction. INDICATION: Pneumothorax chest tube There are no prior CT chest examinations available comparison. The plain film examination of the chest performed prior study did note a 70-80% pneumothorax on the left. In the interval since the prior study, a small caliber chest tube has been inserted on the left. The tip of the tube is directed cephalad and overlies the left upper lung. The pneumothorax seen previously has diminished considerably. There is still a small amount of free air along the anterior aspect of the right lung base. Furthermore in the interval since the prior study, bibasilar atelectasis/infiltrate has developed. There could be an element of pneumonia present. The right lung is clear. The heart size is within normal limits. There are no coronary artery calcifications noted. The aorta is not abnormally dilated. There is no obvious mediastinal or hilar adenopathy. The thyroid gland was not well visualized. The sections through the upper abdomen failed to show any sign of an acute abnormality. The bone windows are unremarkable for fracture or for destructive lesion. IMPRESSION: 1. The appearance of the chest has improved since the prior exam following insertion of a left-sided chest tube. The large pneumothorax on the left seen previously has nearly completely resolved. Only a small amount of free air still present in the left lung base. 2. However, left lower lobe atelectasis/infiltrate has developed. Clinical follow-up is recommended. 3. There is no acute abnormality identified otherwise. Interpreted by: TIGIST MELTON MD Assessment/Plan Assessment/Plan Admission Diagonsis Chest pain Admission Status: Observation Assessment/Plan 1. Chest pain, migratory from the R to the L 2. Spontaneous pneumothorax of L lung 3. Atelectasis/infiltrate present in L lung base Clinical Quality Measures AMI/AHF: ASA po Prior to arrival: HANH Quiñones DO 05/10/21 1838: History of Present Illness History of Present Illness Reason for visit/HPI Chief complaint left pneumothorax Patient is a 25-year-old male who states that he has been having right-sided chest pain for about 3 weeks. He was seen at [place] in the emergency department and diagnosed with pleurisy. Patient states that over the last 24 hours he has developed a cough and the pain had migrated to the left side. He is having pain in the left neck left chest down to the. Patient states it is constant sharp pain. Patient is having some shortness of breath and was found to have a large left pneumothorax with possibly patient in the Thora vent was placed emergently in [place] emergency department. Patient was transferred to [place] for observation. Patient history of pneumothorax on the left side. Patient is still having some chest discomfort states slightly better before the chest tube. States the pain at the worse is 8 out of 10. Still having some difficulty taking deep breath. Patient is upset about being in observation and feels that he has not gotten care in a timely fashion. He is demanding to leave. He wants to leave AGAINST MEDICAL ADVICE. Patient had chest x-rays demonstrate pneumothorax prior to the Thora vent and post Thora vent. It had been hooked up to [facility] which he had a CT scan that demonstrated some left basilar atelectasis/infiltrate and expansion of the left lung with the Thora vent in the left chest cavity. Allergies and Home Medications Allergies Coded Allergies: Cephalosporins (Verified Allergy, Unknown, 12/08/20) Penicillins (Verified Allergy, Unknown, 01/10/21) per patient Sulfa (Sulfonamide Antibiotics) (Verified Allergy, Unknown, 12/08/20) Patient Home Medication List Home Medication List Reviewed: Yes Phenazopyridine HCl (Pyridium) 200 Mg Tablet, 1 TAB PO TID PRN for PAIN-MODERATE (5-7) Prescribed by: VICKIE MOREIRA on 01/10/21 1142 Past Pdbhhzv-Wlkwfs-Cfeomy Hx Patient Social History Tobacco Use?: Yes Tobacco type used: Cigarettes Smoking Status: Current Everyday Smoker (Marijuana) Substance use?: Yes Substance type: Marijuana (Daily use) Substance frequency: Daily Past Medical History Adverse Reaction/Blood Tranf: No Family Medical History No Pertinent Family Hx Review of Systems Constitutional: No chills, No fever; malaise EENTM: No blurred vision, No double vision Respiratory: cough, short of breath Cardiovascular: chest pain Gastrointestinal: No abdominal pain, No nausea, No vomiting Genitourinary: No decreased output, No discharge Musculoskeletal: No back pain, No joint pain Skin: No change in color, No change in hair/nails Psychiatric/Neurological: Denies Anxiety, Denies Depressed All Other Systems Reviewed Negative Unless Noted: Yes (Negative excepted noted.) Physical Exam General Appearance: Anxious, Thin HEENT: PERRL/EOMI, Normal ENT Inspection Neck: Normal Inspection, Non Tender Respiratory: Chest Non Tender, No Accessory Muscle Use, No Respiratory Distress Cardiovascular: Regular Rate, Rhythm, No JVD, Other (Left chest with Thora vent in place, valve is moving appropriately) Gastrointestinal: Non Tender, Soft Rectal: Deferred Back: Normal Inspection, No CVA Tenderness Extremity: Normal Capillary Refill, Normal Inspection, Non Tender Neurologic/Psychiatric: Alert, Oriented x3, No Motor/Sensory Deficits, 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 Patient I reviewed his chest x-rays and CT scans with him. He understands the results. Patient is upset about the care that he has received thus far he states is wanting to leave AGAINST MEDICAL ADVICE. I did discuss with him possible outcomes including due to tension pneumothorax or other possibilities. He understands and demonstrates understanding repeating it back. I also offered to try to transfer him to other facilities which he declines. Patient discussed that we will leave the Thora vent because this is what is keeping his lung expanded at this time. Did offer to have him follow-up with me on outpatient basis as well. He states he will take care of it himself. Supervisory-Addendum Brief Verification & Attestation Participated in pt care: history, MDM, physical Personally performed: exam, history, MDM, supervision of care Care discussed with: Medical Student Procedures: n/a Results interpretation: Verified all documentation Verification and Attestation of Medical Student E/M Service A medical student performed and documented this service in my presence. I reviewed and verified all information documented by the medical student and made modifications to such information, when appropriate. I personally performed the physical exam and medical decision making. Hanh Clay, May 10, 2021,18:46 DONATO MILAN May 10, 2021 13:13 HANH CLAY DO May 10, 2021 18:38
[2021-05-10] MEDS ORDERED: CATHETER FLUSH 10 ML SYR IV PRN (14:30)
[2021-05-10] MEDS ORDERED: KETOROLAC 15 MG/ML VIAL IV PRN (14:30)
[2021-05-10] MEDS ORDERED: LACTATED RINGERS 1,000 ML IV SCH (14:30)
--- NOTE | 2021-05-19 14:45 | Physician Query-Final Dx ---
Final Diagnosis Give Final Diagnosis Please give Final Diagnosis ANABELLEMayMay 19, 2021 14:45
== END 2021-05-11 15:22 | disposition left against medical advice (07) ==
LOC: EDUNIT# 07:40 → ER FS 07:42 → 4TH 11:56 → UNDOADMOB 12:03 → UNDODISOB 15:30
PROVIDERS: ADMIT Surgery; ATTEND Surgery
DX: J93.83 Other pneumothorax (principal); J98.11 Atelectasis; J45.909 Unspecified asthma, uncomplicated; G43.909 Migraine, unspecified, not intractable, without status migrainosus; G52.9 Cranial nerve disorder, unspecified; R09.1 Pleurisy; F12.90 Cannabis use, unspecified, uncomplicated; F17.210 Nicotine dependence, cigarettes, uncomplicated; Z79.899 Other long term (current) drug therapy
CPT/HCPCS: 36415; 71045; 71046; 71250; 80048; 85025; 93005; 93041; 96374; 96375; 99285; G0378 ×2

== ENCOUNTER 2021-05-12 14:43 | Emergency (ER) | payer SELFPAY ==
[~2021-05-12] VITALS: Ht 182 cm; Wt 65.0 kg
--- NOTE | 2021-05-12 15:23 | Diagnostic Imaging Report ---
PA and lateral chest at 3:06. Indication: Chest pain The previous exam of 05/10/2021 noted a large pneumothorax on the left with much of the left lung collapsed about the left hilum. The CT chest exam performed on the same date following insertion of a chest tube revealed that the lung had reexpanded and that there is only a very small amount of residual free air present in the left thorax. On this exam there has been been a recurrent pneumothorax. The pneumothorax is not as pronounced as on the prior exam but is still sizable and 70-80% range. Furthermore there does appear to be slight shift of midline to the right and do suspect that there is an element of tension present. The small caliber chest tube apparatus is evident overlying the left upper lung. The tube seems to be in good position but obviously is not properly functioning. In the interval since the prior study a small amount of fluid has developed in the left lung base. The heart is stable in size. The right lung remain generally clear. IMPRESSION: 1. There is a sizable recurrent pneumothorax on the left. There also appears to be an element of tension developing. 2. These results were discussed with Dr. Olman Shipamn at the time of this dictation. Critical finding Dictated by: Dictated on workstation # [id number]
[2021-05-12] MEDS ORDERED: morphine INJ 10 MG/ML 1ML (SYR OR VIAL) IVP STA ×5 (15:53→21:55)
--- NOTE | 2021-05-12 15:59 | ED General ---
General Chief Complaint: General Problems/Pain Stated Complaint: LUNG PAIN Nursing Triage Note: Patient has presented to ER with cc of left lung pain and left side neck pain. Patient reports that he was seen in the ER on sunday and had a chest tube placed in his left chest, he was sent to [facility] Sunday and he left AMA yesterday. He reports that he was not given any oxygen and they were not doing anything to control his pain. He has presented to today to make sure his lung is expanded and have some thing done about the pain. Source of Information: Patient, Old Records (KINJAL KANG MD) History of Present Illness Date Seen by Provider: May 12, 2021 Time Seen by Provider: 14:46 Initial Comments 25-year-old male presenting with complaints of continued pain to the left side of his chest going up into his neck. He was admitted on the for the same complaints and had a spontaneous pneumothorax that was recurrent at that time. He has had a previous spontaneous pneumothorax in the past. He had a chest tube placed with a Thora vent chest tube. He did have improved expansion of his lung and was admitted to [facility] for management. Patient had felt that he was not getting enough pain medication or being seen quickly enough. Due to this he had left AGAINST MEDICAL ADVICE. Dr. Clay the surgeon military personnel specialist had been in a surgical case when he arrived in [place] so he was not able to come immediately to see the patient. When Dr. Clay did see the patient he had offered to help manage the pain as well as he even offered to help get him transferred to another facility however the patient continued to refuse and just wanted to leave AGAINST MEDICAL ADVICE. Patient reports he was advised to follow-up with his primary care provider for management of a chest tube. He had come to be seen by Dr. Cheung any today however when he went to the clinic the I told him that there was nothing they could do for him through the clinic and he would need to go to the emergency department. He came here complaining of pain and concerned about his symptoms and recurrent pneumothorax as well as wanting to know what to do to manage his thora vent chest tube. Modifying Factors: worse with Movement (deep breaths) Associated Systoms: Chest Pain (left side, worse with deep breaths); No Cough, No Diaphoresis, No Fever/Chills, No Headaches, No Loss of Appetite, No Malaise, No Nausea/Vomiting, No Rash, No Seizure; Shortness of Air; No Syncope, No Weakness (KINJAL KANG MD) Allergies and Home Medications Allergies Coded Allergies: Cephalosporins (Verified Allergy, Unknown, 12/08/20) Penicillins (Verified Allergy, Unknown, 01/10/21) per patient Sulfa (Sulfonamide Antibiotics) (Verified Allergy, Unknown, 12/08/20) Patient Home Medication List Home Medication List Reviewed: Yes (KINJAL KANG MD) Hydrocodone/Acetaminophen (Hydrocodone-Acetamin 5-325 mg) 1 Each Tablet, 1 TAB PO Q4H PRN for PAIN-MODERATE (5-7) Prescribed by: ALECIA VAZQUEZ on 05/13/21 0918 Hydrocodone/Acetaminophen (Hydrocodone-Acetamin 5-325 mg) 1 Each Tablet, 1 TAB PO Q4H PRN for PAIN-MODERATE (5-7) Prescribed by: ALECIA VAZQUEZ on 05/13/21 0921 Phenazopyridine HCl (Pyridium) 200 Mg Tablet, 1 TAB PO TID PRN for PAIN-MODERATE (5-7) Prescribed by: VICKIE MOREIRA on 01/10/21 1142 Review of Systems Review of Systems Constitutional: No chills, No fever EENTM: no symptoms reported Respiratory: see HPI Cardiovascular: see HPI Gastrointestinal: no symptoms reported Genitourinary: no symptoms reported Musculoskeletal: no symptoms reported Skin: no symptoms reported Psychiatric/Neurological: Anxiety (KINJAL KANG MD) Past Jhskbwc-Romglj-Fxphar Hx Patient Social History Tobacco Use?: Yes Tobacco type used: Cigarettes Smoking Status: Current Everyday Smoker Substance use?: Yes Substance type: Marijuana Substance frequency: Several times a month Alcohol Use?: No Pt feels they are or have been: No (KINJAL KANG MD) Immunizations Up To Date First/Initial COVID19 Vaccinat: Not currently vaccinated Second COVID19 Vaccination Ruben: Not currently vaccinated Third COVID19 Vaccination Date: Not currently vaccinated (KINJAL KANG MD) Past Medical History Surgery/Hospitalization HX: Spontaneous Pneumothorax, carpal tunnel; urinary retention Surgeries: Yes Respiratory: Yes Asthma Cardiac: No Neurological: Yes Headaches /Migraines Sexually Transmitted Disease: No Genitourinary: Yes Bladder Infection Gastrointestinal: Yes Chronic Constipation Psychosocial: No Adverse Reaction/Blood Tranf: No (KINJAL KANG MD) Family Medical History No Pertinent Family Hx (KINJAL KANG MD) Physical Exam Vital Signs Vital Signs - First Documented 05/12/21 05/12/21 14:59 19:15 Temp 36.5 Pulse 80 Resp 20 B/P (MAP) 146/84 (104) Pulse Ox 97 O2 Delivery Room Air ([facility]) Vital Signs Capillary Refill : (KINJAL KANG MD) Height, Weight, BMI Height: '" Weight: lbs. oz. kg; 19.00 BMI Method: General Appearance: Anxious, Mild Distress HEENT: PERRL/EOMI, Pharynx Normal Neck: Full Range of Motion, Non Tender, Supple Respiratory: No Accessory Muscle Use, No Respiratory Distress, Decreased Breath Sounds (on left compared to right), Other (tender to palpation on left chest wall) Cardiovascular: Regular Rate, Rhythm, Normal Peripheral Pulses Gastrointestinal: No Pulsatile Mass, Non Tender, Soft Rectal: Deferred Extremity: Normal Capillary Refill, Normal Inspection, No Pedal Edema Neurologic/Psychiatric: Alert, Oriented x3 Skin: Normal Color, Warm/Dry (KINJAL KANG MD) Procedures/Interventions Patient Education: Explained Benefits, Explained Risks, Pt. Ack. Understanding Breath Sounds per Auscultation: Clear Heart Sounds per Auscultation: Regular Airway Exam: Mouth opens >2 fingers, Neck Full Range of Motion, Visulation of Uvula Sedation Adminstration Time: 0840 Re-examination Time: 0851 (KINJAL KANG MD) Progress/Results/Core Measures Suspected Sepsis SIRS Temperature: Pulse: 80 Respiratory Rate: 20 Laboratory Tests 05/12/21 16:38: White Blood Count 8.4 Blood Pressure 146 /84 Mean: 104 Laboratory Tests 05/12/21 16:38: Creatinine 0.70, Platelet Count 266, Total Bilirubin 0.5 (KINJAL KANG MD) Results/Orders Lab Results Laboratory Tests Test 05/12/21 16:38 05/12/21 20:10 Range/Units White Blood Count 8.4 4.3-11.0 10^3/uL Red Blood Count 5.35 4.30-5.52 10^6/uL Hemoglobin 16.9 13.3-17.7 g/dL Hematocrit 49 40-54 % Mean Corpuscular Volume 92 80-99 fL Mean Corpuscular Hemoglobin 32 25-34 pg Mean Corpuscular Hemoglobin Concent 34 32-36 g/dL Red Cell Distribution Width 12.8 10.0-14.5 % Platelet Count 266 130-400 10^3/uL Mean Platelet Volume 8.8 L 9.0-12.2 fL Immature Granulocyte % (Auto) 1 % Neutrophils (%) (Auto) 66 42-75 % Lymphocytes (%) (Auto) 25 12-44 % Monocytes (%) (Auto) 6 0-12 % Eosinophils (%) (Auto) 2 0-10 % Basophils (%) (Auto) 1 0-10 % Neutrophils # (Auto) 5.6 1.8-7.8 X 10^3 Lymphocytes # (Auto) 2.1 1.0-4.0 X 10^3 Monocytes # (Auto) 0.5 0.0-1.0 X 10^3 Eosinophils # (Auto) 0.2 0.0-0.3 10^3/uL Basophils # (Auto) 0.0 0.0-0.1 10^3/uL Immature Granulocyte # (Auto) 0.0 0.0-0.1 10^3/uL Sodium Level 139 135-145 MMOL/L Potassium Level 4.2 3.6-5.0 MMOL/L Chloride Level 109 H 98-107 MMOL/L Carbon Dioxide Level 21 21-32 MMOL/L Anion Gap 9 5-14 MMOL/L Blood Urea Nitrogen 11 7-18 MG/DL Creatinine 0.70 0.60-1.30 MG/DL Estimat Glomerular Filtration Rate 137 BUN/Creatinine Ratio 16 Glucose Level 84 70-105 MG/DL Calcium Level 9.3 8.5-10.1 MG/DL Corrected Calcium 9.1 8.5-10.1 MG/DL Total Bilirubin 0.5 0.1-1.0 MG/DL Aspartate Amino Transf (AST/SGOT) 16 5-34 U/L Alanine Aminotransferase (ALT/SGPT) 18 0-55 U/L Alkaline Phosphatase 56 40-136 U/L Total Protein 6.9 6.4-8.2 GM/DL Albumin 4.3 3.2-4.5 GM/DL Urine Color DARK YELLOW Urine Clarity CLEAR Urine pH 7.0 5-9 Urine Specific [place] 1.025 H 1.016-1.022 Urine Protein NEGATIVE NEGATIVE Urine Glucose (UA) NEGATIVE NEGATIVE Urine Ketones 3+ H NEGATIVE Urine Nitrite NEGATIVE NEGATIVE Urine Bilirubin 1+ H NEGATIVE Urine Urobilinogen 0.2 < = 1.0 MG/DL Urine Leukocyte Esterase NEGATIVE NEGATIVE Urine RBC (Auto) 1+ H NEGATIVE Urine RBC 10-25 H /HPF Urine WBC RARE /HPF Urine Squamous Epithelial Cells NONE /HPF Urine Crystals NONE /LPF Urine Bacteria NEGATIVE /HPF Urine Casts NONE /LPF Urine Mucus MODERATE H /LPF Urine Culture Indicated NO Urine Opiates Screen POSITIVE H NEGATIVE Urine Oxycodone Screen NEGATIVE NEGATIVE Urine Methadone Screen NEGATIVE NEGATIVE Urine Propoxyphene Screen NEGATIVE NEGATIVE Urine Barbiturates Screen NEGATIVE NEGATIVE Ur Tricyclic Antidepressants Screen NEGATIVE NEGATIVE Urine Phencyclidine Screen NEGATIVE NEGATIVE Urine Amphetamines Screen NEGATIVE NEGATIVE Urine Methamphetamines Screen NEGATIVE NEGATIVE Urine Benzodiazepines Screen NEGATIVE NEGATIVE Urine Cocaine Screen NEGATIVE NEGATIVE Urine Cannabinoids Screen POSITIVE H NEGATIVE (ALECIA VAZQUEZ DO) My Orders Orders - ALECIA VAZQUEZ DO Chest 1 View Ap/Pa Only (05/13/21 08:38) (ALECIA VAZQUEZ DO) Vital Signs/I&O 05/12/21 05/12/21 05/12/21 05/12/21 14:59 14:59 19:15 20:15 Temp 36.5 Pulse 80 82 81 Resp 20 17 18 B/P (MAP) 146/84 (104) 123/93 147/91 Pulse Ox 97 99 O2 Delivery Room Air Room Air Room Air Room Air 05/12/21 05/12/21 05/12/21 05/12/21 21:00 21:30 22:31 23:00 Temp 36.2 Pulse 68 62 60 74 Resp 16 14 14 14 B/P (MAP) 127/84 133/88 121/85 150/102 Pulse Ox 98 98 97 99 O2 Delivery Room Air Room Air Room Air Room Air 05/13/21 05/13/21 05/13/21 05/13/21 00:05 01:00 02:00 02:35 Pulse 63 62 65 61 Resp 13 14 15 14 B/P (MAP) 118/79 100/72 115/59 Pulse Ox 96 96 95 96 O2 Delivery Room Air Room Air Room Air Room Air 05/13/21 05/13/21 05/13/21 05/13/21 03:48 04:36 05:39 06:30 Pulse 57 61 50 52 Resp 14 16 15 16 B/P (MAP) 115/65 101/63 106/61 112/70 Pulse Ox 95 96 97 96 O2 Delivery Room Air Room Air Room Air Room Air 05/13/21 00:00 Output Total 0 ml Balance 0 ml (ALECIA VAZQUEZ DO) Vital Signs/I&O Capillary Refill : (KINJAL KANG MD) Blood Pressure Mean: 104 Progress Note #1: Progress Note Obtain x-ray of the chest as a PA and lateral to assess cells lung and the status of his pneumothorax. Progress Note #2: Progress Note X-rays demonstrate his pneumothorax has progressed again to a 70 to 80% range of his lung on the left side. The radiologist had called to discuss these findings. 1521 Call was placed to Dr. Clay who was gracious enough to accept my call and discussed the patient treatment though he was out of town at a continuing education seminar. He recommended having chest tube put to suction and work on transfer to [facility] where patient wanted to go originally, or to a facility that had a thoracic surgeon for his recurrent pneumothorax. 1637 after reviewing recommendations with the patient I placed a call to [facility] in [facility] at patient's request and recommendation from surgeon. However, they were holding over 20 patients in the ED for admission and did not have any beds available for transfers. Updated the patient and advised there were no definite beds available for the patient to be admitted. He stated that he did not want to go back to [place], and he did not want to go south to [place], but he would be willing to go north to [place] or [place]. 1727 call placed to the [facility] access center about possible transfer the patient. Advised that there were no beds at any level within the [facility] system in [place]. They also advised that in regards to transfers to other facilities within the [facility] area that all of the other hospitals were also full and they had not been able to find any beds within the state of [place] or [place]. Reviewed with patient these findings and he asked about driving himself to a facility in [place]. I advised him that to do so he would have to sign out AGAINST MEDICAL ADVICE and drive up there directly. However, if he did do something like that at least he would be able to be seen and evaluated other than the larger hospital. Patient was given repeated doses of pain medicine but was not allowing the nurse to hook his catheter up to suction. He said that he needed more time for the medicine to kick in and then when the nurse did have time to go back he was requesting additional pain medicine because the pain was coming back. Progress Note #3: Progress Note Patient had remained stable with oxygen saturation room air 98% on room air. When I finally had a chance from managing multiple other patients I was able to go in and use the T valve to aspirate air from his chest through the Thora vent. He tolerated this relatively well. A repeat chest x-ray was obtained and did show that he was having minor improvement in the lung expansion. He was hooked up to Pleur-evac with suction to further help with his pneumothorax and lung expansion. After this was connected he was complaining of pain again. A repeat dose of morphine was ordered. We will continue to look around for possible admit fro patient. [facility] was contacted to assist with bed placement but similar to information provided by [facility], they were reporting that there were no beds available in [facility] or in local surrounding states for the patient to be transferred. Advised pt that it could be hours if they can find a bed at all for patient. 2248 pt was complaining of some nausea after the repeated doses of Morphine so a dose of Zofran 4 mg IV along with Ativan 1 mg IV was ordered for the patient. He was able to relax and get some rest without frequent requests for pain medicine. 0515 [facility] called to say that they had contacted multiple facilities through out [place], [place], [place], [place], [place] and [place] without any luck in finding a bed for the patient. They will continue to look and start calling hospitals again after shift change this am. Will repeat CXR this am to see how he was responding to the treatment for his pneumothorax. Will pass care to Dr. Alecia Vazquez at 0700 pending disposition Progress Note #4: Time: 07:25 Progress Note on repeat CXR this am his lung is re-expanded and he is remaining hemodynamically stable. I called to check with Dr. Pierre, the military personnel specialist surgeon. He recommended that the patient be taken off suction and if he still has his lung expanded on a repeat CXR after an hour or so then he could be discharged home and have follow up on [facility] [place] to repeat CXR and see if the thora-vent can be removed by surgeon in clinic. Plan discussed with Dr. Vazquez and care passed to him at shift change. (KINJAL KANG MD) Diagnostic Imaging Diagonstic Imaging: Xray Plain Films/CT/US/NM/MRI: chest Comments [facility] [place] NAME: MIRANDA DELONG [facility] REC#: [id number] PT STATUS: REG ER : 1995 PHYSICIAN: KINJAL KANG MD ADMIT DATE: 05/12/21/ER FS Signed Date of Exam:05/12/21 CHEST PA/LAT (2 VIEW) PA and lateral chest at 3:06. Indication: Chest pain The previous exam of 05/10/2021 noted a large pneumothorax on the left with much of the left lung collapsed about the left hilum. The CT chest exam performed on the same date following insertion of a chest tube revealed that the lung had reexpanded and that there is only a very small amount of residual free air present in the left thorax. On this exam there has been been a recurrent pneumothorax. The pneumothorax is not as pronounced as on the prior exam but is still sizable and 70-80% range. Furthermore there does appear to be slight shift of midline to the right and do suspect that there is an element of tension present. The small caliber chest tube apparatus is evident overlying the left upper lung. The tube seems to be in good position but obviously is not properly functioning. In the interval since the prior study a small amount of fluid has developed in the left lung base. The heart is stable in size. The right lung remain generally clear. IMPRESSION: 1. There is a sizable recurrent pneumothorax on the left. There also appears to be an element of tension developing. 2. These results were discussed with Dr. Olman Kang at the time of this dictation. Critical finding Dictated by: Dictated on workstation # [id number] Dict: 05/12/211511 Trans: 05/12/218 CVB [id number] Interpreted by: TIGIST MELTON MD Electronically signed by: TIGIST MELTON MD 05/12/21 3536 Reviewed: Reviewed by Me Diagonstic Imaging: Xray Plain Films/CT/US/NM/MRI: chest Comments [facility] [place], [place] NAME: MIRANDA DELONG [facility] REC#: [id number] PT STATUS: REG ER : 1995 PHYSICIAN: KINJAL KANG MD ADMIT DATE: 05/12/21/ER FS Draft Date of Exam:05/12/21 CHEST 1 VIEW AP/PA ONLY CLINICAL INDICATIONS: Repeat chest x-ray after aspirating from chest tube. EXAM: Portable chest x-ray upright view. COMPARISON: Chest x-ray dated 05/10/2021 FINDINGS AND IMPRESSION: 1: Small caliber chest tube is again seen overlying the left upper lung field region. There is interval improved expansion of the left lung with decreased left pneumothorax. There continues to be a large left pneumothorax remaining. There is minimal shifting of the mediastinum toward the right. 2: The remainder of this exam is stable. Right lung is clear. 3: Pulmonary vasculature and cardiac silhouette within normal limits. Results of this report was discussed with Dr. Olman Kang via the telephone on 05/12/2021 at 2048 hours. Dictated on workstation # [id number] Dict: 05/12/212043 Trans: 05/12/212051 CVB [id number] Interpreted by: VARGAS MCCARTNEY MD Electronically signed by: [facility]ady Imaging: Xray Plain Films/CT/US/NM/MRI: chest Comments 704 am CXR shows left lung re-expanded with Thoravent in place, on my review of the 1 view film of his chest. [facility] [place] [place] NAME: MIRANDA DELONG [facility] REC#: [id number] PT STATUS: REG ER : 1995 PHYSICIAN: KINJAL KANG MD ADMIT DATE: 05/12/21/ER FS Signed Date of Exam:05/13/21 CHEST 1 VIEW AP/PA ONLY INDICATION: Pneumothorax, chest tube on suction COMPARISON: 05/12/2019 TECHNIQUE: Single frontal radiograph of the chest dated 05/13/2019 FINDINGS: Small caliber left-sided chest tube is again noted overlying the left upper lung, appearing relatively similar to the prior examination. Previously noted left-sided pneumothorax has essentially resolved without significant left-sided pneumothorax remaining. Therefore, the left lung appears reexpanded when compared to the prior exam. The lungs are clear of focal pulmonary opacity. No significant pleural effusion. Osseous structures appear stable. IMPRESSION: Resolution of previously noted left-sided pneumothorax with reexpansion of the left lung with left-sided chest tube in place. No adverse change when compared to the prior exam. Dictated by: Dictated on workstation # [id number] Dict: 05/13/21708 Trans: 05/13/21825 [facility] [id number] Interpreted by: TABBY CISSE MD Electronically signed by: TABBY CISSE MD 05/13/21825 Reviewed: Reviewed by Al Diagonstic Imaging: Xray Plain Films/CT/US/NM/MRI: chest Comments [facility] [place] NAME: BALJEETMIRANDA [facility] REC#: [id number] PT STATUS: REG ER : 1995 PHYSICIAN: ALECIA VAZQUEZ DO ADMIT DATE: 05/12/21/ER FS Draft Date of Exam:05/13/21 CHEST 1 VIEW AP/PA ONLY EXAMINATION: Portable erect AP chest at 8:42 AM. INDICATION: Pneumothorax. FINDINGS: The exam performed earlier today at 7:01 AM noted resolution of the left-sided pneumothorax seen on the prior study of 05/12/2021. There was also a small caliber left-sided chest tube in place. Reportedly, in the interval since the prior exam, the chest tube has been clamped. On this study, there is still no evidence for a recurrent pneumothorax. The chest tube seems similar in position and the overall appearance of the chest itself is otherwise stable. IMPRESSION: There is no evidence for a recurrent pneumothorax following the clamping of the chest tube. Dictated on workstation # [id number] Dict: 05/13/2149 Trans: 05/13/21 0853 [id number] Interpreted by: TIGIST MELTON MD Electronically signed by: (IKNJAL KANG MD) Transfer of Care Transfer of Care Time: 07:30 Care transferred to: Dr. Vazquez (KINJAL KANG MD) Departure Communication (Admissions) 8:40 AM chest x-ray: Reexpansion of pneumothorax Patient with reexpansion of pneumothorax 1 hour post removal of wall suction device from [employer]. Patient has follow-up appointment on Sunday at 10:30 AM with general surgeon to have device removed. Will prescribe pain medications. Return precautions reviewed. Patient verbalizes understanding agreement discharge instructions prior to departure. (LAECIA VAZQUEZ DO) Impression Primary Impression: Recurrent spontaneous pneumothorax Additional Impression: Left-sided chest pain Disposition: HOME, SELF-CARE Condition: Stable Departure-Patient Inst. Decision time for Depature: 09:15 (ALECIA VAZQUEZ DO) Referrals: HANH CLAY PANKAJ K MD (PCP/Family) Primary Care Physician Patient Instructions: Pneumothorax (Collapsed Lung) Add. Discharge Instructions: Please follow-up with Dr. Clay's office on Sunday at 10:30 AM for reevaluation and removal of chest tube device. Take hydrocodone as needed for pain. In the meantime if you develop new or worsening symptoms, return to the emergency department. Good luck! All discharge instructions reviewed with patient and/or family. Voiced understanding. Scripts Hydrocodone/Acetaminophen (Hydrocodone-Acetamin 5-325 mg) 1 Each Tablet 1 TAB PO Q4H PRN for PAIN-MODERATE (5-7), #12 TAB Prov: ALECIA VAZQUEZ DO 05/13/21 Hydrocodone/Acetaminophen (Hydrocodone-Acetamin 5-325 mg) 1 Each Tablet 1 TAB PO Q4H PRN for PAIN-MODERATE (5-7), #10 TAB Prov: ALECIA VAZQUEZ DO 05/13/21 KINJAL KANG MD May 12, 2021 15:59 ALECIA VAZQUEZ DO May 13, 2021 09:15
[2021-05-12 16:59] LABS: HEMATOCRIT 49 % (40-54); HEMOGLOBIN 16.9 g/dL (13.3-17.7); MEAN CORPUSCULAR HEMOGLOBIN 32 pg (25-34); MEAN CORPUSCULAR HGB CONC 34 g/dL (32-36); MEAN CORPUSCULAR VOLUME 92 fL (80-99); WHITE BLOOD COUNT 8.4 10^3/uL (4.3-11.0)
[2021-05-12 17:00] LABS: BASOPHILS % (AUTO) 1 % (0-10); EOSINOPHILS # (AUTO) 0.2 10^3/uL (0.0-0.3); EOSINOPHILS % (AUTO) 2 % (0-10); LYMPHOCYTES # (AUTO) 2.1 X 10^3 (1.0-4.0); LYMPHOCYTES % (AUTO) 25 % (12-44); MEAN PLATELET VOLUME 8.8 fL (9.0-12.2); MONOCYTES # (AUTO) 0.5 X 10^3 (0.0-1.0); MONOCYTES % (AUTO) 6 % (0-12); NEUTROPHILS # (AUTO) 5.6 X 10^3 (1.8-7.8); NEUTROPHILS % (AUTO) 66 % (42-75); PLATELET COUNT 266 10^3/uL (130-400)
[2021-05-12 17:10] LABS: BILIRUBIN,TOTAL 0.5 MG/DL (0.1-1.0); CALCIUM 9.3 MG/DL (8.5-10.1); CREATININE SERUM 0.7 MG/DL (0.60-1.30); POTASSIUM 4.2 MMOL/L (3.6-5.0)
[2021-05-12 17:11] LABS: ALBUMIN 4.3 GM/DL (3.2-4.5); TOTAL PROTEIN 6.9 GM/DL (6.4-8.2)
[2021-05-12 20:26] LABS: CLARITY,URINE CLEAR; GLUCOSE, URINE (UA) NEGATIVE (NEGATIVE); KETONES,URINE 3+ (NEGATIVE); LEUKOCYTE ESTERASE ,URINE NEGATIVE (NEGATIVE); NITRITE,URINE NEGATIVE (NEGATIVE); PROTEIN,URINE NEGATIVE (NEGATIVE)
[2021-05-12] MEDS ORDERED: WATER (STERILE) FOR INJECTION 10 ML ONE ×2 (20:36→20:39)
[2021-05-12 20:38] LABS: BACTERIA,URINE NEGATIVE /HPF; WBC,URINE RARE /HPF
[2021-05-12 20:39] LABS: BENZODIAZEPINES SCREEN URINE NEGATIVE (NEGATIVE); BILIRUBIN,URINE 1+ (NEGATIVE); COCAINE SCREEN URINE NEGATIVE (NEGATIVE); COLOR,URINE DARK YELLOW
[2021-05-12 20:40] LABS: AMPHETAMINE SCREEN, URINE NEGATIVE (NEGATIVE); BARBITURATE SCREEN URINE NEGATIVE (NEGATIVE); CANNABINOID SCREEN, URINE POSITIVE (NEGATIVE); METHADONE STAT NEGATIVE (NEGATIVE); METHAMPHETAMINE SCREEN URINE S NEGATIVE (NEGATIVE); OPIATE SCREEN URINE POSITIVE (NEGATIVE); OXYCODONE STAT NEGATIVE (NEGATIVE); PROPOXYPHENE STAT NEGATIVE (NEGATIVE); TRICYCLIC ANTIDEPRESSANTS SCRE NEGATIVE (NEGATIVE)
[2021-05-12] MEDS ORDERED: KETOROLAC 30 MG/ML VIAL IVP STA (20:53)
--- NOTE | 2021-05-12 20:54 | Diagnostic Imaging Report ---
CLINICAL INDICATIONS: Repeat chest x-ray after aspirating from chest tube. EXAM: Portable chest x-ray upright view. COMPARISON: Chest x-ray dated 05/10/2021 FINDINGS AND IMPRESSION: 1: Small caliber chest tube is again seen overlying the left upper lung field region. There is interval improved expansion of the left lung with decreased left pneumothorax. There continues to be a large left pneumothorax remaining. There is minimal shifting of the mediastinum toward the right. 2: The remainder of this exam is stable. Right lung is clear. 3: Pulmonary vasculature and cardiac silhouette within normal limits. Results of this report was discussed with Dr. Olman Shipman via the telephone on 05/12/2021 at 2048 hours. Dictated by: Dictated on workstation # [id number]
[2021-05-12] MEDS ORDERED: NS IV 1000 ML 1,000 ML IV STA (20:55)
[2021-05-12] MEDS ORDERED: LORazepam INJ 2 MG/ML (ATIVAN) VIAL IVP STA (22:58)
[2021-05-12] MEDS ORDERED: ONDANSETRON 4 MG/2 ML (SDV) Z0FRAN IVP STA (22:58)
[2021-05-13] MEDS ORDERED: HYDROcodone/APAP 5 MG/325 MG (LORTAB) TAB PO STA (07:10)
[2021-05-13] MEDS ORDERED: KETOROLAC 30 MG/ML VIAL IVP STA (07:10)
--- NOTE | 2021-05-13 07:13 | Diagnostic Imaging Report ---
INDICATION: Pneumothorax, chest tube on suction COMPARISON: 05/12/2019 TECHNIQUE: Single frontal radiograph of the chest dated 05/13/2019 FINDINGS: Small caliber left-sided chest tube is again noted overlying the left upper lung, appearing relatively similar to the prior examination. Previously noted left-sided pneumothorax has essentially resolved without significant left-sided pneumothorax remaining. Therefore, the left lung appears reexpanded when compared to the prior exam. The lungs are clear of focal pulmonary opacity. No significant pleural effusion. Osseous structures appear stable. IMPRESSION: Resolution of previously noted left-sided pneumothorax with reexpansion of the left lung with left-sided chest tube in place. No adverse change when compared to the prior exam. Dictated by: Dictated on workstation # [id number]
--- NOTE | 2021-05-13 08:53 | Diagnostic Imaging Report ---
EXAMINATION: Portable erect AP chest at 8:42 AM. INDICATION: Pneumothorax. FINDINGS: The exam performed earlier today at 7:01 AM noted resolution of the left-sided pneumothorax seen on the prior study of 05/12/2021. There was also a small caliber left-sided chest tube in place. Reportedly, in the interval since the prior exam, the chest tube has been clamped. On this study, there is still no evidence for a recurrent pneumothorax. The chest tube seems similar in position and the overall appearance of the chest itself is otherwise stable. IMPRESSION: There is no evidence for a recurrent pneumothorax following the clamping of the small caliber chest tube. [ Dictated by: Dictated on workstation # [id number]
[2021-05-13] MEDS ORDERED: ACHD5005 PO ×2 (09:18→09:20)
[2021-05-13 09:23] VITALS: BP 118/78
== END 2021-05-13 09:26 | disposition home or self-care (01) ==
LOC: EDUNIT# 14:43 → ER FS 14:44
DX: J93.83 Other pneumothorax (principal); R07.9 Chest pain, unspecified; J45.909 Unspecified asthma, uncomplicated; F17.210 Nicotine dependence, cigarettes, uncomplicated
CPT/HCPCS: 36415; 71045; 71046; 80053; 80306; 81000; 85025

== ENCOUNTER → 2021-05-17 | Outpatient (CLI) | payer SELFPAY ==
[~2021-05-17] MED LIST changes: +ACHD5005 PO
--- NOTE | 2021-05-17 10:03 | Diagnostic Imaging Report ---
EXAMINATION: Chest 2 view HISTORY: Pneumothorax COMPARISON: 05/13/2021 FINDINGS: No edema or pneumonia. No pleural effusion or pneumothorax. Left-sided chest tube is present. Heart size is normal. IMPRESSION: 1. No pneumothorax. Dictated by: Dictated on workstation # [id number]
== END ==
LOC: RAD 08:56
PROVIDERS: ATTEND Surgery
DX: J93.9 Pneumothorax, unspecified (principal)
CPT/HCPCS: 71046

== ENCOUNTER → 2021-05-17 | Outpatient (CLI) | payer SELFPAY ==
--- NOTE | 2021-05-17 12:55 | Diagnostic Imaging Report ---
INDICATION: Left pneumothorax. TIME OF EXAM: 11:56 AM. COMPARISON: Correlation is made with the prior chest from earlier this same day. FINDINGS: The heart size is normal. The Thora-Vent chest tube on the left has been removed. No residual pneumothorax is seen. The lungs are clear. IMPRESSION: No evidence of pneumothorax status post chest tube removal. Dictated by: Dictated on workstation # [id number]
== END ==
LOC: RAD FS 11:48
PROVIDERS: ATTEND Surgery
DX: J93.9 Pneumothorax, unspecified (principal); Z98.890 Other specified postprocedural states
CPT/HCPCS: 71046